=== PATIENT | female | born 1970 | race Caucasian/White ===

== ENCOUNTER 2021-04-04 04:22 | Emergency (ER) | payer OTHER ==
[2021-04-04] MEDS ORDERED: Pepcid 20 MG VIAL IV ONE ×2 (05:00→05:02)
[2021-04-04] MEDS ORDERED: DECADRON 10MG INJ. IV ONE (05:00)
[2021-04-04] MEDS ORDERED: DECADRON 10MG INJ. ONE (05:02)
--- NOTE | 2021-04-04 05:06 | ERPHSYRPT ---
- History of Present Illness Source: patient Exam Limitations: no limitations Patient Subjective Stated Complaint: pt states "I was in a wedding over the weekend in [place] and was bit by no see um bugs." Triage Nursing Assessment: pt ambulated into the er; pt is axo x4; c/o insect bites to BUE and BLE; pt c/o swelling to left hand that started today; pt states that she took a benadryl 30 minutes prior to arrival; pt states that bites had itched but became worried when her left hand began to swell; pt has multiple welts to BUE and BLE; swelling present to left hand; strong left radial pulse; good cap refill to left hand; pt denies SOB, N/V/D; pt states tightness is left hand; vitals wnl Physician History: 50 yo wf w rash and edema of hands x1day after attending 2 day ago in [place] and getting bit by insects. Pt denies dyspnea/trouble breathing/trouble swallowing/N/V/D/new medications. Timing/Duration: yesterday Severity: mild Modifying Factors: Improves With: nothing Associated Symptoms: rash, No nausea, No vomiting, No abdominal pain, No shortness of breath, No heartburn, No diaphoresis, No cough, No chills, No chest pain, No fever, No headaches, No loss of appetite, No malaise, No syncope, No seizure, No weakness Allergies/Adverse Reactions: Sulfa (Sulfonamide Antibiotics) Allergy (Verified 04/04/21 04:29) Rash Hx Tetanus, Diphtheria Vaccination/Date Given: Yes Hx Influenza Vaccination/Date Given: No Hx Pneumococcal Vaccination/Date Given: No Travel Risk - International Travel Have you traveled outside of the country in past 3 weeks: No - Coronavirus Screening Are you exhibiting any of the following symptoms?: No Close contact with a COVID-19 positive Pt in past 14-21 Days: No - Vaccine Status Have you recieved a Covid-19 vaccination: No - Review of Systems Constitutional: No Symptoms Eyes: No Symptoms Ears, Nose, & Throat: No Symptoms Respiratory: No Symptoms Cardiac: No Symptoms Abdominal/Gastrointestinal: No Symptoms Genitourinary Symptoms: No Symptoms Musculoskeletal: No Symptoms Skin: Rash Neurological: No Symptoms Psychological: No Symptoms Endocrine: No Symptoms Hematologic/Lymphatic: No Symptoms Immunological/Allergic: No Symptoms - Past Medical History Pertinent Past Medical History: No - Past Surgical History Past Surgical History: Yes Female Surgical History: Other Other Surgical History: ablation - Social History Smoking Status: Never smoker Exposure to second hand smoke: No Drug Use: none Patient Lives Alone: No Significant Family History: no pertinent family hx - Female History Hx Now: No - Nursing Vital Signs Nursing Vital Signs: Initial Vital Signs Temperature 97.5 F 04/04/21 04:31 Pulse Rate 92 H 04/04/21 04:31 Respiratory Rate 18 04/04/21 04:31 Blood Pressure 128/94 04/04/21 04:31 O2 Sat by Pulse Oximetry 98 04/04/21 04:31 Pain Scale Pain Intensity 0 WNL - Physical Exam General Appearance: no apparent distress Eye Exam: PERRL/EOMI, eyes nml inspection Ears, Nose, Throat Exam: normal ENT inspection Neck Exam: normal inspection, non-tender, supple, full range of motion, No meningismus, No mass, No Brudzinski, No Kernig's Respiratory Exam: normal breath sounds, lungs clear, airway intact, No respiratory distress Cardiovascular Exam: regular rate/rhythm, normal heart sounds, normal peripheral pulses, No murmur Gastrointestinal/Abdomen Exam: soft, normal bowel sounds, No tenderness Back Exam: normal inspection, normal range of motion, No CVA tenderness Extremity Exam: other (Edema of hands B w blanching erythematous rash on forearms/posterior thighs/Wedding ring L 4th digit which is constricting and not able to be removed) Neurologic Exam: alert, oriented x 3, cooperative, blunger II-XII nml as tested, normal mood/affect Skin Exam: normal color, rash (Blanching, erythematous B hands/f orearms/posterior thighs) Lymphatic Exam: No adenopathy SpO2 Interpretation: normal SpO2: 98 O2 Delivery: Room Air - Course Nursing assessment & vital signs reviewed: Yes Ordered Tests: Medication Summary Discontinued Medications Generic Name Dose Route Start Last Admin Trade Name Freq PRN Reason Stop Dose Admin Dexamethasone Sodium Phosphate 10 mg 04/04/21 05:00 04/04/21 05:04 Decadron 10mg Inj. IV 04/04/21 05:01 10 mg STAT ONE Administration Dexamethasone Sodium Phosphate Confirm 04/04/21 05:02 Decadron 10mg Inj. Administered 04/04/21 05:03 Dose 10 mg .ROUTE .STK-MED ONE Famotidine 20 mg 04/04/21 05:00 04/04/21 05:04 Pepcid 20 Mg Vial IV 04/04/21 05:01 20 mg STAT ONE Administration Famotidine Confirm 04/04/21 05:02 Pepcid 20 Mg Vial Administered 04/04/21 05:03 Dose 20 mg IV .STK-MED ONE - Progress Progress: improved Progress Note: 04/04/21 05:10 After pt's permission, wedding ring L 4th digit removed by ring cutter/no comps 10mg IV Decadron 40mg IV Pepcid 04/04/21 06:03 Pt later stated that she started Adipex last week Counseled pt/family regarding: diagnosis, need for follow-up - Departure Departure Disposition: Home Clinical Impression: Allergic reaction Condition: Stable Critical Care Time: No Referrals: JONO CASTAÑEDA [Primary Care Provider] - Instructions: Skin Rash (DC) Additional Instructions: Prednisone twice a day for 3 days Vistaril for itching Return to ER for increased swelling/Worsening rash/Shortness of breath/Trouble swallowing Prescriptions: Prednisone 10 mg [Deltasone 10 mg] 10 mg PO BID 3 Days #6 tablet Prednisone 10 mg [Deltasone 10 mg] 10 mg PO BID 3 Days #6 tablet hydrOXYzine pamoate [Vistaril] 25 mg PO QID PRN #12 PRN Reason: itching
[2021-04-04 05:23] VITALS: BP 123/97; PULSE 86
[2021-04-04 06:04] VITALS: O2SAT 98
== END 2021-04-04 05:31 | disposition home or self-care (01) ==
LOC: ED 04:22
DX: T78.49XA Other allergy, initial encounter (principal); S60.562A Insect bite (nonvenomous) of left hand, initial encounter
CPT/HCPCS: 36000; 96374; 96375; 99284; J1100